=== PATIENT | female | born 1980 | race Caucasian/White ===

== ENCOUNTER 2018-01-23 09:47 | Outpatient (CLI) | payer OTHER ==
[2018-01-23 11:11] LABS: ADD UMIC NO; UR ASCORBIC ACID NEGATIVE (NEGATIVE); UR BILIRUBIN (Dip) NEGATIVE (NEGATIVE); UR BLOOD (Dip) NEGATIVE (NEGATIVE); UR CLARITY CLEAR (CLEAR); UR COLOR STRAW (YELLOW); UR GLUCOSE (Dip) NEGATIVE (NEGATIVE); UR KETONES (Dip) NEGATIVE (NEGATIVE); UR LEUKOCYTE ESTERASE (Dip) NEGATIVE Leu/ul (NEGATIVE); UR NITRITE (Dip) NEGATIVE (NEGATIVE); UR SPECIFIC GRAVITY (Dip) 1.008 (1.003-1.030); UR TOTAL PROTEIN (Dip) NEGATIVE (NEGATIVE); UR UROBILINOGEN (Dip) NEGATIVE (NEGATIVE)
== END 2018-01-23 13:25 | disposition home or self-care (01) ==
LOC: OBT 09:47 → L-D 09:48 → OBT 13:25
DX: M54.5 Low back pain (principal); R35.0 Frequency of micturition; O26.892 Other specified pregnancy related conditions, second trimester; O09.522 Supervision of elderly multigravida, second trimester; Z3A.23 23 weeks gestation of pregnancy
CPT/HCPCS: 76817; 76818; 81003

== ENCOUNTER 2018-03-10 16:44 | Outpatient (CLI) | payer OTHER | END 2018-03-10 17:50 | disposition home or self-care (01) | LOC: OBT 16:44 → L-D 16:46 → OBT 17:50 | DX: O24.410 Gestational diabetes mellitus in pregnancy, diet controlled (principal); O09.523 Supervision of elderly multigravida, third trimester; O36.8130 Decreased fetal movements, third trimester, not applicable or unspecified; Z3A.29 29 weeks gestation of pregnancy | CPT/HCPCS: 76818 ==

== ENCOUNTER 2018-05-01 10:12 | Outpatient (CLI) | payer OTHER | END 2018-05-01 11:10 | disposition home or self-care (01) | LOC: OBT 10:12 → L-D 10:12 → OBT 11:10 | DX: O23.593 Infection of other part of genital tract in pregnancy, third trimester (principal); N76.0 Acute vaginitis; O24.419 Gestational diabetes mellitus in pregnancy, unspecified control; Z3A.37 37 weeks gestation of pregnancy | CPT/HCPCS: Z7500 ==

== ENCOUNTER 2018-05-03 04:38 | Outpatient (CLI) | payer OTHER ==
[2018-05-03] MEDS: FLUCONAZOLE 150 MG TAB PO (05:58)
== END 2018-05-03 06:00 | disposition home or self-care (01) ==
LOC: OBT 04:38 → L-D 04:38 → OBT 06:00
DX: O24.410 Gestational diabetes mellitus in pregnancy, diet controlled (principal); O98.913 Unspecified maternal infectious and parasitic disease complicating pregnancy, third trimester; Z3A.37 37 weeks gestation of pregnancy
CPT/HCPCS: Z7500

== ENCOUNTER 2018-05-06 10:41 | Inpatient (IN) | payer OTHER ==
[2018-05-06 11:45] LABS: ADD MAN DIFF? NO
[2018-05-06 11:48] LABS: BASOPHILS % 0.1 % (0.0-2.0); EOSINOPHILS # 0.1 10^3/ul (0.0-0.5); EOSINOPHILS % 1.3 % (0.0-7.0); HEMOGLOBIN 11.7 g/dl (12.0-16.0); LYMPHOCYTES # 1.4 10^3/ul (0.8-2.9); LYMPHOCYTES % 16.1 % (15.0-51.0); MEAN CORPUSCULAR HEMOGLOBIN 29.5 pg (29.0-33.0); MEAN CORPUSCULAR HGB CONC 32.5 g/dl (32.0-37.0); MEAN CORPUSCULAR VOLUME 90.7 fl (82.0-101.0); MEAN PLATELET VOLUME 12.5 fl (7.4-10.4); MONOCYTE # 0.5 10^3/ul (0.3-0.9); MONOCYTES % 5.9 % (0.0-11.0); NEUTROPHIL # 6.6 10^3/ul (1.6-7.5); NEUTROPHILS % 76.1 % (39.0-77.0); PLATELET COUNT 199 10^3/UL (140-415); RED BLOOD COUNT 3.97 10^6/ul (4.20-5.40); RED CELL DISTRIBUTION WIDTH 15.1 % (11.5-14.5)
[2018-05-06 11:48] LABS: WHITE BLOOD COUNT 8.6 10^3/ul (4.8-10.8)
[2018-05-06 11:51] LABS: ADD UMIC YES; UR ASCORBIC ACID 40 mg/dL (NEGATIVE); UR BACTERIA FEW /HPF (NONE SEEN); UR BILIRUBIN (Dip) NEGATIVE (NEGATIVE); UR BLOOD (Dip) NEGATIVE (NEGATIVE); UR BUDDING YEAST FEW /HPF (NONE SEEN); UR CLARITY CLOUDY (CLEAR); UR COLOR AMBER (YELLOW); UR GLUCOSE (Dip) NEGATIVE (NEGATIVE); UR KETONES (Dip) TRACE mg/dL (NEGATIVE); UR LEUKOCYTE ESTERASE (Dip) 2+ Leu/ul (NEGATIVE); UR MUCUS MODERATE /HPF (NONE SEEN); UR NITRITE (Dip) NEGATIVE (NEGATIVE); UR RBC 8 /HPF (0-5); UR SPECIFIC GRAVITY (Dip) 1.033 (1.003-1.030); UR SQUAMOUS EPITHELIAL CELL MANY /HPF (FEW); UR TOTAL PROTEIN (Dip) 2+ mg/dl (NEGATIVE); UR UROBILINOGEN (Dip) NEGATIVE (NEGATIVE); UR WBC 16 /HPF (0-5)
[2018-05-06 12:07] LABS: INR 0.91; PROTIME 12.3 Sec (11.9-14.9)
[2018-05-06 12:13] LABS: ALBUMIN 3.2 g/dl (3.3-4.9); ALBUMIN/GLOBULIN RATIO 0.94; ALKALINE PHOSPHATASE 145 IU/L (42-121); ANION GAP 9 (5-13); ASPARTATE AMINO TRANSFERASE 19 IU/L (15-46); BILIRUBIN,INDIRECT 0.2 mg/dl (0-1.1); BILIRUBIN,TOTAL 0.2 mg/dl (0.2-1.3); BLOOD UREA NITROGEN 9 mg/dl (7-20); CALCIUM 9.2 mg/dl (8.4-10.2); CARBON DIOXIDE 21 mmol/L (21-31); CHLORIDE 106 mmol/L (97-110); CREATININE 0.53 mg/dl (0.44-1.00); Estimated GFR > 60 mL/min (>60); GLUCOSE 119 mg/dl (70-220); SODIUM 136 mmol/L (135-144); TOTAL PROTEIN 6.6 g/dl (6.1-8.1); URIC ACID 6.3 mg/dl (3.1-7.9)
[2018-05-06 12:22] LABS: ALANINE AMINOTRANSFERASE < 6 IU/L (13-69)
[2018-05-06] MEDS: ACETAMINOPHEN 325 MG TAB PO ×2 (14:04→17:44)
[2018-05-06] MEDS ORDERED: CLOTRIMAZOLE 1% 45 GM VAG CR VAG (21:00)
[2018-05-06] MEDS: CLOTRIMAZOLE 1% 30 GM CR TOP (21:56)
[2018-05-06] MEDS: MICONAZOLE 200 MG VAG SUPP VAG (21:56)
[2018-05-07] MEDS: CLOTRIMAZOLE 1% 30 GM CR TOP ×4 (09:00→21:48)
[2018-05-07] MEDS: ACETAMINOPHEN 325 MG TAB PO (09:25)
[2018-05-07] MEDS: PRENATAL VITAMIN PO (09:25)
[2018-05-07] MEDS: FERROUS SULFATE (EC) 325 MG TAB PO (09:25)
[2018-05-07] MEDS: DINOPROSTONE 10 MG VAG SUPP VAG (20:00)
[2018-05-07] MEDS ORDERED: MISOPROSTOL 200 MCG TAB PR (20:00)
[2018-05-07] MEDS: LACTATED RINGER'S 1,000 ML IV* (20:00)
[2018-05-07] MEDS ORDERED: CARBOPROST 250 MCG INJ IM (20:00)
[2018-05-07] MEDS ORDERED: METHYLERGONOVINE 0.2 MG INJ IM (20:00)
[2018-05-07] MEDS ORDERED: OXYTOCIN 30 UNITS/LR 500 ML IV (20:00)
[2018-05-07] MEDS ORDERED: ACETAMINOPHEN/CODEINE #3 TAB PO (20:00)
[2018-05-07] MEDS: AMPICILLIN 2 GM/NS (PMX) 100 ML IV (20:00)
[2018-05-07] MEDS ORDERED: LIDOCAINE 1% (MPF) 30 ML INJ INJ (20:00)
[2018-05-07] MEDS ORDERED: BUTORPHANOL 2 MG INJ IV (20:00)
[2018-05-07 20:11] LABS: ADD MAN DIFF? NO
[2018-05-07 20:17] LABS: BASOPHILS % 0.1 % (0.0-2.0); EOSINOPHILS # 0.1 10^3/ul (0.0-0.5); EOSINOPHILS % 1.8 % (0.0-7.0); HEMATOCRIT 35.8 % (37.0-47.0); HEMOGLOBIN 11.6 g/dl (12.0-16.0); LYMPHOCYTES # 1.5 10^3/ul (0.8-2.9); LYMPHOCYTES % 20.4 % (15.0-51.0); MEAN CORPUSCULAR HEMOGLOBIN 29.4 pg (29.0-33.0); MEAN CORPUSCULAR HGB CONC 32.4 g/dl (32.0-37.0); MEAN CORPUSCULAR VOLUME 90.9 fl (82.0-101.0); MONOCYTE # 0.4 10^3/ul (0.3-0.9); MONOCYTES % 5.6 % (0.0-11.0); NEUTROPHIL # 5.2 10^3/ul (1.6-7.5); NEUTROPHILS % 71.8 % (39.0-77.0); PLATELET COUNT 180 10^3/UL (140-415); RED BLOOD COUNT 3.94 10^6/ul (4.20-5.40); RED CELL DISTRIBUTION WIDTH 15.1 % (11.5-14.5)
[2018-05-07 20:17] LABS: WHITE BLOOD COUNT 7.3 10^3/ul (4.8-10.8)
[2018-05-07 20:35] LABS: INR 0.91; PROTIME 12.3 Sec (11.9-14.9)
[2018-05-07 20:43] LABS: PARTIAL THROMBOPLASTIN TIME 24.9 Sec (23.0-35.0)
[2018-05-07] MEDS: MICONAZOLE 200 MG VAG SUPP VAG (21:48)
[2018-05-08] MEDS: AMPICILLIN 1 GM/NS (PMX) 50 ML IV ×4 (04:00→23:19)
[2018-05-08] MEDS: LACTATED RINGER'S 1,000 ML IV* ×3 (04:00→23:19)
[2018-05-08] MEDS: PRENATAL VITAMIN PO (08:47)
[2018-05-08] MEDS: FERROUS SULFATE (EC) 325 MG TAB PO (08:47)
[2018-05-08] MEDS: CLOTRIMAZOLE 1% 30 GM CR TOP ×2 (08:49→21:42)
[2018-05-08] MEDS: ACETAMINOPHEN 325 MG TAB PO ×2 (13:18→15:37)
[2018-05-08 14:33] LABS: HEPATITIS B SURFACE ANTIGEN NEGATIVE (NEGATIVE)
[2018-05-08] MEDS: DINOPROSTONE 10 MG VAG SUPP VAG (14:43)
[2018-05-08 15:23] LABS: RAPID PLASMA REAGIN NONREACTIVE (NR)
[2018-05-08] MEDS ORDERED: AMPICILLIN 2 GM/NS (PMX) 100 ML (15:32)
[2018-05-08] MEDS: AMPICILLIN 2 GM/NS (PMX) 100 ML IV (15:37)
[2018-05-08] MEDS: MICONAZOLE 200 MG VAG SUPP VAG (21:41)
[2018-05-09] MEDS: AMPICILLIN 1 GM/NS (PMX) 50 ML IV ×6 (03:38→23:30)
[2018-05-09] MEDS: LACTATED RINGER'S 1,000 ML IV* ×3 (08:54→18:57)
[2018-05-09] MEDS: CLOTRIMAZOLE 1% 30 GM CR TOP ×2 (09:00→20:51)
[2018-05-09] MEDS: FERROUS SULFATE (EC) 325 MG TAB PO (09:35)
[2018-05-09] MEDS: PRENATAL VITAMIN PO (09:35)
[2018-05-09] MEDS: OXYTOCIN 30 UNITS/LR 500 ML IV ×3 (16:37→22:49)
[2018-05-09] MEDS ORDERED: FENTAnyl 2MCG/ML-ROPIV 0.2% 100 ML BAG EPI (17:00)
[2018-05-09] MEDS ORDERED: NALOXONE (0.4 MG/ML) INJ IV (17:00)
[2018-05-09] MEDS ORDERED: ONDANSETRON 4 MG INJ IV (17:00)
[2018-05-09] MEDS ORDERED: DIPHENHYDRAMINE 50 MG INJ IV (17:00)
[2018-05-09] MEDS: DEXTROSE 5%-LR 1,000 ML IV (18:57)
[2018-05-09] MEDS: MINERAL OIL LIGHT 10 ML VIAL TOP (23:10)
[2018-05-09] MEDS: ACETAMINOPHEN 325 MG TAB PO (23:34)
[2018-05-09] MEDS: IBUPROFEN 800 MG TAB PO (23:42)
[2018-05-10] MEDS ORDERED: METHYLERGONOVINE 0.2 MG INJ IM (01:30)
[2018-05-10] MEDS ORDERED: OXYTOCIN 30 UNITS/LR 500 ML IV (01:30)
[2018-05-10] MEDS ORDERED: ZOLPIDEM 5 MG TAB PO (01:30)
[2018-05-10] MEDS ORDERED: HYDROCODONE/APAP (5/325) TAB PO ×2 (01:30)
[2018-05-10] MEDS ORDERED: MISOPROSTOL 200 MCG TAB PR (01:30)
[2018-05-10] MEDS ORDERED: CARBOPROST 250 MCG INJ IM (01:30)
[2018-05-10] MEDS ORDERED: DIBUCAINE 1% 30 GM OINT PR (01:30)
[2018-05-10] MEDS: BENZOCAINE 20% 56 ML SPRAY TOP (04:34)
[2018-05-10] MEDS: WITCH HAZEL/GLYCERIN PAD PR (04:34)
[2018-05-10] MEDS: LANOLIN 7 GM TUBE TOP (04:35)
[2018-05-10] MEDS: CEPHALEXIN 500 MG CAP PO ×4 (04:35→18:16)
[2018-05-10] MEDS: ACCU-CHEK XX ×4 (08:10→20:18)
[2018-05-10 08:30] LABS: ADD MAN DIFF? NO
[2018-05-10 08:36] LABS: WHITE BLOOD COUNT 11.2 10^3/ul (4.8-10.8)
[2018-05-10 08:36] LABS: BASOPHILS % 0.1 % (0.0-2.0); EOSINOPHILS # 0.1 10^3/ul (0.0-0.5); HEMATOCRIT 34.1 % (37.0-47.0); HEMOGLOBIN 11.2 g/dl (12.0-16.0); LYMPHOCYTES # 1.5 10^3/ul (0.8-2.9); LYMPHOCYTES % 13.7 % (15.0-51.0); MEAN CORPUSCULAR HEMOGLOBIN 29.9 pg (29.0-33.0); MEAN CORPUSCULAR HGB CONC 32.8 g/dl (32.0-37.0); MEAN CORPUSCULAR VOLUME 90.9 fl (82.0-101.0); MEAN PLATELET VOLUME 12.9 fl (7.4-10.4); MONOCYTE # 0.8 10^3/ul (0.3-0.9); MONOCYTES % 7.3 % (0.0-11.0); NEUTROPHIL # 8.7 10^3/ul (1.6-7.5); NEUTROPHILS % 77.6 % (39.0-77.0); PLATELET COUNT 169 10^3/UL (140-415); RED BLOOD COUNT 3.75 10^6/ul (4.20-5.40); RED CELL DISTRIBUTION WIDTH 15.2 % (11.5-14.5)
[2018-05-10] MEDS: IBUPROFEN 600 MG TAB PO ×3 (08:36→18:16)
[2018-05-10] MEDS: LACTATED RINGER'S 1,000 ML IV* ×3 (11:59→17:05)
[2018-05-10] MEDS: SENNA/DOCUSATE NA (8.6MG/50MG) TAB PO ×2 (12:09→21:00)
[2018-05-10] MEDS: MAGNESIUM HYDROXIDE 30ML CUP PO ×2 (12:09→21:00)
[2018-05-10] MEDS: DIPHENHYDRAMINE 1%/ZINC 28.3 GM CR TOP (22:31)
[2018-05-11] MEDS: DIPHENHYDRAMINE 1%/ZINC 28.3 GM CR TOP ×4 (00:22→18:19)
[2018-05-11] MEDS: CEPHALEXIN 500 MG CAP PO ×4 (00:22→18:00)
[2018-05-11] MEDS: IBUPROFEN 600 MG TAB PO ×4 (00:22→18:19)
[2018-05-11] MEDS: LACTATED RINGER'S 1,000 ML IV* (01:05)
[2018-05-11] MEDS: ACCU-CHEK XX ×4 (08:20→20:11)
[2018-05-11] MEDS: DIPHTH/TET/ACEL PERTUSS (ADULT) 0.5 ML VIAL IM* (09:00)
[2018-05-11] MEDS: MEASLES,MUMPS,RUBELLA VACCINE INJ SC* (09:00)
[2018-05-11] MEDS: VARICELLA VACCINE LIVE/PF 1,350 UNIT/0.5 ML ML SC* (09:00)
[2018-05-11] MEDS: MAGNESIUM HYDROXIDE 30ML CUP PO ×2 (09:41→21:00)
[2018-05-11] MEDS: SENNA/DOCUSATE NA (8.6MG/50MG) TAB PO ×2 (09:41→21:00)
== END 2018-05-11 23:32 | disposition home or self-care (01) | DRG 807 ==
LOC: OBT 10:41 → PP1 05-07 00:27 → L-D 05-08 13:10 → PP1 05-10 00:59 → L-D 10:41 → OBT 12:45 → L-D 05-08 13:21
PROC: 10E0XZZ Delivery of Products of Conception, External Approach (ICD-10-PCS; principal; 2018-05-09)
PROC: 0W8NXZZ Division of Female Perineum, External Approach (ICD-10-PCS; 2018-05-09)
PROC: 3E033VJ Introduction of Other Hormone into Peripheral Vein, Percutaneous Approach (ICD-10-PCS; 2018-05-09)
DX: O13.4 Gestational [pregnancy-induced] hypertension without significant proteinuria, complicating childbirth (principal); Z37.0 Single live birth; O24.429 Gestational diabetes mellitus in childbirth, unspecified control; Z3A.38 38 weeks gestation of pregnancy
CPT/HCPCS: 62319; 80053; 81001; 82962; 84560; 85025; 85610; 85730; 86592; 86850; 86900; 86901; 87086; 87340; 90715; 90716; 99464